=== PATIENT | female | born 1990 | race Caucasian/White ===

== ENCOUNTER 2024-01-08 22:42 | Emergency (ER) | payer SELFPAY ==
[2024-01-08 23:33] VITALS: BP 129/86; PULSE 89; RESP 16; TEMP 36.2; O2SAT 99; BMI 35.6
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
[2024-01-09] MEDS: Ibuprofen 600 MG TABLET PO (01:24)
[2024-01-09 01:34] VITALS: BP 129/86; PULSE 89; RESP 16; TEMP 36.2; O2SAT 99
== END 2024-01-09 01:35 | disposition home or self-care (01) ==
PROVIDERS: Emergency Provider Internal Medicine
DX: Z04.1 Encounter for examination and observation following transport accident (principal); R53.81 Other malaise
CPT/HCPCS: 99283